=== PATIENT | female | born 1980 | race Caucasian/White ===

== ENCOUNTER 2016-10-09 19:12 | Outpatient (CLI) | payer OTHER ==
[~2016-10-09] VITALS: Ht 167.6 cm; Wt 89.0 kg
== END 2016-10-09 21:22 | disposition home or self-care (01) ==
LOC: LDOP 19:12
PROVIDERS: ATTEND Obstetrics & Gynecology
DX: O42.92 Full-term premature rupture of membranes, unspecified as to length of time between rupture and onset of labor (principal); O62.9 Abnormality of forces of labor, unspecified; Z3A.38 38 weeks gestation of pregnancy
CPT/HCPCS: 59025; 89060; 99201; G0463; Q0114

== ENCOUNTER 2016-10-10 02:02 | Inpatient (IN) | payer OTHER ==
[~2016-10-10] VITALS: Ht 167.6 cm; Wt 88.6 kg
[2016-10-10] MEDS ORDERED: D5%-LACTATED RINGERS 1,000 ML IV SCH (02:19)
[2016-10-10] MEDS ORDERED: LACTATED RINGERS 1,000 ML IV SCH ×2 (02:19→03:50)
[2016-10-10] MEDS ORDERED: OXYTOCIN 30U/ 0.9% NaCL 500ML 500 ML IV ONE (02:19)
[2016-10-10] MEDS ORDERED: OXYTOCIN 30U/ 0.9% NaCL 500ML 500 ML ONE (02:24)
[2016-10-10] MEDS ORDERED: MISOPROSTOL 200 MCG TABLET ONE (02:24)
[2016-10-10] MEDS ORDERED: NEWBORN KIT ONE (02:24)
[2016-10-10] MEDS ORDERED: FENTANYL PF 100 MCG/2ML IVPush PRN (02:30)
[2016-10-10] MEDS ORDERED: ALUMINUM/MAG/SIMETHICONE 30 ML UDC PO PRN (02:30)
[2016-10-10] MEDS ORDERED: ONDANSETRON 2MG/ML, 2ML IVPush PRN (02:30)
[2016-10-10] MEDS ORDERED: FENTANYL PF 100 MCG/2ML IV PRN (02:30)
[2016-10-10] MEDS ORDERED: CALCIUM CARBONATE 500 MG TAB.CHEW PO PRN ×3 (02:30→18:30)
[2016-10-10] MEDS ORDERED: LACTATED RINGERS 1,000 ML IVBOLUS PRN ×2 (02:30→04:00)
[2016-10-10] MEDS ORDERED: LIDOCAINE/PF 1.5%-EPI 1:200K, 30ML ONE ×2 (03:18→03:19)
[2016-10-10] MEDS ORDERED: FENTANYL/BUPIV./NS/PF 250 ML EPIDCONT ONE ×2 (03:18→03:19)
[2016-10-10] MEDS ORDERED: LIDOCAINE 1%, 20ML ONE (03:19)
[2016-10-10] MEDS ORDERED: FENTANYL/BUPIV./NS/PF 250 ML EPIDCONT SCH (03:50)
[2016-10-10] MEDS ORDERED: NALOXONE 0.4 MG/ML, 1ML IVPush PRN (04:00)
[2016-10-10] MEDS ORDERED: EPHEDRINE 50 MG/ML, 1ML IVPush PRN (04:00)
[2016-10-10] MEDS: OXYTOCIN 30U/ 0.9% NaCL 500ML 500 ML IV SCH ×3 (07:07→18:30)
[2016-10-10] MEDS ORDERED: IBUPROFEN 600 MG TABLET ONE (07:14)
[2016-10-10] MEDS: IBUPROFEN 600 MG TABLET PO PRN ×3 (07:20→20:42)
[2016-10-10] MEDS ORDERED: ONDANSETRON 2MG/ML, 2ML IV PRN ×2 (07:30→18:30)
[2016-10-10] MEDS ORDERED: MISOPROSTOL 200 MCG TABLET SL PRN ×2 (07:30→18:30)
[2016-10-10] MEDS ORDERED: ACETAMINOPHEN 325 MG TABLET PO PRN ×2 (07:30→18:30)
[2016-10-10] MEDS ORDERED: HYDROcodone/APAP 5/325 TABLET PO PRN ×4 (07:30→18:30)
[2016-10-10] MEDS ORDERED: PRENATAL VIT/IRON/FA 1 EACH TABLET PO SCH (09:00)
[2016-10-10 09:30] VITALS: BP 98/65
[2016-10-10 12:03] VITALS: BP 119/76
[2016-10-10 16:00] VITALS: BP 119/68
[2016-10-10 19:15] VITALS: BP 126/80
[2016-10-10] MEDS: DOCUSATE 100 MG CAPSULE PO PRN (20:42)
[2016-10-11 00:10] VITALS: BP 118/73
[2016-10-11] MEDS: OXYTOCIN 30U/ 0.9% NaCL 500ML 500 ML IV SCH (04:30)
[2016-10-11] MEDS: IBUPROFEN 600 MG TABLET PO PRN ×2 (04:45→11:35)
[2016-10-11 04:50] VITALS: BP 112/78
[2016-10-11 07:55] VITALS: BP 112/68
[2016-10-11] MEDS ORDERED: PRENATAL VIT/IRON/FA 1 EACH TABLET PO SCH (09:00)
[2016-10-11] MEDS: DOCUSATE 100 MG CAPSULE PO PRN (11:35)
== END 2016-10-11 12:40 | disposition home or self-care (01) | DRG 775 ==
LOC: LDOP 02:02 → LDIP 02:23 → 2NW 09:15
PROVIDERS: ADMIT Obstetrics & Gynecology; ATTEND Obstetrics & Gynecology
PROC: 10E0XZZ Delivery of Products of Conception, External Approach (ICD-10-PCS; principal; 2016-10-10)
PROC: 0HQ9XZZ Repair Perineum Skin, External Approach (ICD-10-PCS; 2016-10-10)
PROC: 00HU33Z Insertion of Infusion Device into Spinal Canal, Percutaneous Approach (ICD-10-PCS; 2016-10-10)
PROC: 3E0R3CZ (ICD-10-PCS; 2016-10-10)
DX: O70.0 First degree perineal laceration during delivery (principal); Z37.0 Single live birth; Z3A.38 38 weeks gestation of pregnancy; Z88.1 Allergy status to other antibiotic agents; Z88.2 Allergy status to sulfonamides
CPT/HCPCS: 36415; 85025; 86850; 86900; J3490; J3010; J7120